=== PATIENT | male | born 1995 | race Caucasian/White ===

== ENCOUNTER 2021-05-21 13:09 | Outpatient (CLI) | payer OTHER, SELFPAY ==
[2021-05-21 15:03] LABS: Liquefaction Semen Complete in 30 min. (<30 minutes); Semen Color Opaque (Grey-opaque); Semen Viscosity Not Increased (Not Increa.); Volume Semen 2.5 mL (1.5-5.0)
[2021-05-21 15:04] LABS: Semen Immotility 20 %; Semen Morphology Result to Follow; Semen Non-Progressive Motility 10 %; Semen Progressive Motility 70 % (>32); Semen Total Motility 80 (>40% (PM+NP)); Sperm Count 35.2 Mil/mL (60-150 million/mL)
[2021-05-28 19:46] LABS: Fructose, Semen 375 mg/dL (150-600)
== END 2021-05-21 13:10 | disposition home or self-care (01) ==
LOC: CHSLAB 13:12
PROVIDERS: PCP Nurse Practitioner Family; Visit Provider Obstetrics & Gynecology
DX: Z31.41 Encounter for fertility testing (principal)
CPT/HCPCS: 82757; 88160; 89320

== ENCOUNTER 2021-07-16 10:31 | Emergency (ER) | payer OTHER, SELFPAY ==
[2021-07-16 10:49] VITALS: BP 131/86; PULSE 64; RESP 16; TEMP 36.7; O2SAT 99
--- NOTE | 2021-07-16 11:02 | ED.SKABFB ---
HPI - Skin/Abscess/Foreign Bdy General Chief complaint: Skin/Abscess/Foreign Body Stated complaint: RASH Time Seen by Provider: 07/16/21 11:03 Source: patient Mode of arrival: ambulatory Limitations: no limitations History of Present Illness HPI narrative: Jone Hernandez is a 26 yo male with no PMH who comes to express care with a dry scaly rash of abdomen and L forearm, states is not pruritic; has been there since last Wed. He has tried moisturizing it and using an antifungal cream that tends to make it start to fade and then it returns the next day Related Data Home Medications Medication Instructions Recorded Confirmed omeprazole 20 mg PO DAILY 07/16/21 07/16/21 Allergies Allergy/AdvReac Type Severity Reaction Status Date / Time cefaclor Allergy Unknown Rash Verified 07/16/21 10:56 Review of Systems Review of Systems: CONSTITUTIONAL: Denies fever, chills, sweats. EYES: Denies visual changes, redness, discharge. ENT: Denies rhinorrhea, congestion, sore throat, otalgia. CARDIOVASCULAR: Denies chest pain, palpitations, edema. RESPIRATORY: Denies dyspnea, wheezing, cough GASTROINTESTINAL: Denies abdominal pain, nausea, vomiting, diarrhea. GENITOURINARY: Denies dysuria, hematuria, abnormal discharge SKIN: Denies itching. Red scaly rash on abdomen left wrist NEUROLOGIC: Denies numbness, or focal weakness. PSYCHIATRIC: Denies anxiety or depression. [facility]LY [facility], [facility] Past Medical History Medical History Anxiety [id number] condition Surgical History Surgical History No history of previous surgery Family History Family History Father Diabetes mellitus Hypertension Heart disease Mother Cancer Grandparent Cancer Alzheimer disease Social History Social History Social History: , no children, but actively trying. 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 There is no relevant family history pertinent to the presenting complaint. Exam Narrative: GENERAL: This is a well-nourished, well-developed patient, in mild distress. HEAD: normocephalic, atraumatic. EYES: Sclera clear/white. Vision is grossly intact. EARS: External ears normal, Hearing grossly intact. NOSE: External nose normal without nasal discharge, nares without redness, no rhinorrhea. THROAT: Mucous membranes moist, NECK: Neck supple, CARDIOVASCULAR: Regular rate and rhythm without murmurs, gallops, or rubs. RESPIRATORY: Clear to auscultation. Breath sounds equal bilaterally. No wheezes, rales, or rhonchi. GASTROINTESTINAL: Abdomen soft, SKIN: warm, intact with rash, red dry flaky on abdomen and left forearm NEURO: awake, alert, and oriented to person, place and time. There were no obvious focal neurologic abnormalities. Steady gait EXTREMITIES: Normal range of motion. BACK: Nontender without deformity Course Course Emergency Course: Patient has history of eczema on his elbows and has a current rash is not pruritic but very flaky and Prescribed hydrocortisone 2%, given directions on how to use the cream in length of treatment, and to moisturize skin regularly Vital Signs Vital signs: Vital Signs Temperature 98.1 F 07/16/21 10:49 Pulse Rate 64 07/16/21 10:49 Respiratory Rate 16 07/16/21 10
== END 2021-07-16 11:24 | disposition home or self-care (01) ==
PROVIDERS: Emergency Provider Nurse Practitioner; PCP Nurse Practitioner Family
DX: L30.8 Other specified dermatitis (principal); F17.210 Nicotine dependence, cigarettes, uncomplicated
CPT/HCPCS: 99213; G0463

== ENCOUNTER 2022-03-03 15:18 | Emergency (ER) | payer OTHER, SELFPAY ==
--- NOTE | 2022-03-03 15:24 | ED.SKABFB ---
HPI - Skin/Abscess/Foreign Bdy General Chief complaint: Skin/Abscess/Foreign Body Stated complaint: wasp sting & eczema Time Seen by Provider: 03/03/22 15:27 Source: patient Mode of arrival: ambulatory Limitations: no limitations History of Present Illness HPI narrative: 26-year-old male presented for complaints of left arm redness and swelling after wasp sting last evening around 1800. He took Benadryl last night and this morning. States the redness is spreading the arm from the wrist. Denies numbness, tingling, weakness of the hand, denies lip, tongue, or throat swelling, shortness of breath or wheezing. Endorses history of allergic reaction to bee sting approximately 1 year ago and is requesting an EpiPen. Additionally, he endorses scattered patches of dry skin over body surface, he states he was told he has eczema and would like reassurance. Denies worsening condition. MD complaint: rash Related Data Home Medications Medication Instructions Recorded Confirmed omeprazole 20 mg tablet,delayed 20 mg PO DAILY 07/16/21 03/03/22 release Allergies Allergy/AdvReac Type Severity Reaction Status Date / Time cefaclor Allergy Unknown Rash Verified 03/03/22 15:28 Review of Systems Review of Systems: CONSTITUTIONAL: Denies body aches, fever, chills, or sweats. EYES: Denies visual changes, redness, or discharge. ENT: Denies rhinorrhea, congestion, sore throat CARDIOVASCULAR: Denies chest pain, palpitations, or edema. RESPIRATORY: Denies dyspnea. GASTROINTESTINAL: Denies abdominal pain, nausea, vomiting, or diarrhea. SKIN: reports redness/swelling, itching left forearm MUSCULOSKELETAL: Denies back pain, joint pain, or myalgia. NEUROLOGIC: Denies headache, numbness, tingling, or weakness. [facility] Past Medical History Medical History Anxiety [id number] condition Surgical History Surgical History No history of previous surgery Family History Family History Father Diabetes mellitus Hypertension Heart disease Mother Cancer Grandparent Cancer Alzheimer disease Social History Social History Social History: , no children, but actively trying. 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 Please see nursing chart for further information. There is no relevant family history pertinent to the presenting complaint Exam Narrative: GENERAL: Well-appearing EYES: conjunctivae clear, and EOMI. ENT: Mucous membranes moist. Oropharynx without edema, erythema or lesions. CHEST: Clear to auscultation. No respiratory distress. HEART: Regular rate and rhythm. SKIN: Warm, dry. scattered small approx 1-2cm diameter patches of dry scaly skin to abdomen and bilateral arm c/w eczema; Left wrist and dorsal surface of hand with moderate swelling, erythema to palmar surface of wrist to mid forearm, site of insect sting over distal ulna without stinger present; radial pulse palpable, sensation and motor intact, cap refill <3 seconds. NEURO: Alert and oriented x3. PSYCH: Normal mood and affect Course Course Emergency Course: Patient is aware of diagnosis, understands and agrees to treatment plan. Anticipatory guidance given. Patient agrees to f
[2022-03-03 15:29] VITALS: BP 140/97; PULSE 92; RESP 16; TEMP 37.3; O2SAT 100
[2022-03-03] MEDS: methylPREDNISolone SOD SUCC 125 MG VIAL IM (15:41)
== END 2022-03-03 15:51 | disposition home or self-care (01) ==
PROVIDERS: Emergency Provider Nurse Practitioner Family; PCP Nurse Practitioner Family
DX: T63.481A Toxic effect of venom of other arthropod, accidental (unintentional), initial encounter (principal); L30.9 Dermatitis, unspecified; F17.200 Nicotine dependence, unspecified, uncomplicated
CPT/HCPCS: 96372; 99213; G0463; J2930

== ENCOUNTER 2022-04-05 08:42 | Emergency (ER) | payer OTHER, SELFPAY ==
[2022-04-05 08:47] VITALS: BP 153/95; PULSE 83; RESP 16; TEMP 37.2; O2SAT 99
--- NOTE | 2022-04-05 08:47 | ED.URI ---
HPI - URI/Sore Throat General Chief Complaint: Upper Respiratory Infection Stated Complaint: sore throat Time Seen by Provider: 04/05/22 08:47 Source: patient and RN notes reviewed Mode of arrival: ambulatory Limitations: no limitations History of Present Illness HPI Narrative: 27-year-old male presents to the [facility] with complaints of a sore throat since yesterday. Has used cough drops. Pain is worse when coughing and sometimes with swallowing. No chest pain or abdominal pain. Denies fevers. No upper respiratory symptoms. Reports that he is COVID vaccinated completely. Took a COVID test yesterday when his symptoms started and he reports negative MD elicited complaint: sore throat Related Data Home Medications Medication Instructions Recorded Confirmed omeprazole 20 mg tablet,delayed 20 mg PO DAILY 07/16/21 04/05/22 release Allergies Allergy/AdvReac Type Severity Reaction Status Date / Time cefaclor Allergy Unknown Rash Verified 04/05/22 08:48 Review of Systems Review of Systems: All systems reviewed & are unremarkable except as noted in HPI and below Constitutional: Constitutional: Reports no additional constitutional complaints, Denies chills and Denies fever(s) Eyes: Eyes: Reports no additional eye complaints ENT: Reports as per HPI and Reports sore throat Cardiovascular: Cardiovascular: Reports no additional cardiovascular complaints Respiratory: Respiratory: Reports no additional respiratory complaints Gastrointestinal: Gastrointestinal: Reports no additional gastrointestinal complaints Musculoskeletal: Musculoskeletal: Reports no additional musculoskeletal complaints Integumentary/Breasts: Skin/Breast: Reports system reviewed and no additional complaints, except as docu Neurologic: Reports system reviewed and no additional complaints, except as documented Psychiatric: Psychiatric: Reports no additional psychiatric complaints Allergic/Immunologic: Allergic/Immunologic: Reports no additional allergic/immunologic complaints [facility]LY [facility] Past Medical History Medical History Anxiety [id number] condition Surgical History Surgical History No history of previous surgery Family History Family History Father Diabetes mellitus Hypertension Heart disease Mother Cancer Grandparent Cancer Alzheimer disease Social History Social History Social History: , no children, but actively trying. 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 There is no relevant family history pertinent to the patient complaint. Exam Const: General: healthy appearing, no acute distress and alert Nutritional Appearance: well nourished Orientation/consciousness: patient oriented x3 Limitations: no limitations HENMT: Head: normal to inspection Ears: external ears normal, TM's normal bilaterally and EAC's normal General nose exam: Normal external nose present and Normal nares present Face and sinus: normal facial exam Mouth: Yes Normal oral and palatal mucosa present, Yes lip normal and Yes moist mucous membranes Throat: posterior oropharynx normal and uvula midline Eyes: General: appearance normal, both eyes and all related structures Pupils: Equal, round an
[2022-04-05 18:42] LABS: SARS-CoV-2 RNA PCR Negative
== END 2022-04-05 09:13 | disposition home or self-care (01) ==
PROVIDERS: Emergency Provider Nurse Practitioner; PCP Nurse Practitioner Family
DX: J06.9 Acute upper respiratory infection, unspecified (principal); Z20.822 Contact with and (suspected) exposure to COVID-19; F17.290 Nicotine dependence, other tobacco product, uncomplicated; Z86.16 Personal history of COVID-19
CPT/HCPCS: 87081; 87880; 99213; C9803; G0463; U0003; U0005

== ENCOUNTER 2022-04-28 00:09 | Day surgery (SDC) | payer OTHER, SELFPAY ==
[2022-04-14 14:41] VITALS: BMI 29.0
[2022-04-28 08:06] VITALS: BP 144/87; PULSE 75; RESP 18; TEMP 36.2; O2SAT 99
[2022-04-28] MEDS: LACTATED RINGERS 1,000 ML 150 ML IV CONT (08:16)
--- NOTE | 2022-04-28 08:30 | P.PNAN_ITS ---
Anes - Initial Pre Proc Eval Procedure: Operation Date: 04/28/22 09:15 Proposed Procedures p Esophagogastroduodenoscopy - Abel Ramirez MD Date/Time: 04/28/22 08:30 Surgeon: Abel Ramirez MD Pre Op Diagnosis: GERD Patient Data Age: 27 Gender: M Height: 1.85 m Weight: 102.5 kg Last Vital Signs Temp 36.2 C L 04/28/22 08:06 Pulse 75 04/28/22 08:06 Resp 18 04/28/22 08:06 BP 144/87 H 04/28/22 08:06 Pulse Ox 99 04/28/22 08:06 O2 Del Method Room Air 04/28/22 08:06 Allergies Allergy/AdvReac Type Severity Reaction Status Date / Time cefaclor Allergy Unknown Rash Verified 04/28/22 08:05 Home Medications Medication Instructions Recorded Confirmed Type omeprazole 20 mg tablet,delayed 40 mg PO DAILY 07/16/21 04/20/22 History release triamcinolone acetonide 0.1 % 1 applic topical BID #30 grams 04/20/22 04/20/22 Rx topical cream Patient hx anesthesia problems: none Family hx anesthesia problems: none Results Review: All pre-operative results and documents have been reviewed as part of the pre- operative evaluation. [facility] Past Medical History Medical History Anxiety Atopic dermatitis [id number] condition Surgical History Surgical History No history of previous surgery Family History Family History Father Diabetes mellitus Hypertension Heart disease Mother Cancer Grandparent Cancer Alzheimer disease Social History Social History Social History: , no children, but actively trying. 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 Gender identity (if verbalized by the patient): Male Sexual Orientation (if Verbalized by the Patient): Straight or Heterosexual Agree to blood products: Yes Anes - Eval Final PreProcedure Day of Procedure 04/28/22 08:30 Patient weight: overweight Heart: regular rate and rhythm Lungs: clear to auscultation Airway: Mallampati scale class II Neurological: alert and oriented Last oral intake: >/= 8 hours ASA classification: II Emergent: no Anesthesia type and monitoring: general GIVS and standard monitoring Results Review: All pre-operative results and documents have been reviewed as part of the pre-operative evaluation. Informed Consent: The patient's anesthetic plan and its attendant risks and benefits were discussed with the patient/family/POA. Questions were solicited and answers provided to the satisfaction of the patient/family/POA.
[2022-04-28 09:25] VITALS: BP 121/60; PULSE 71; RESP 18; O2SAT 99
[2022-04-28 09:35] VITALS: BP 128/72; PULSE 77; RESP 19; O2SAT 98
[2022-04-28 09:45] VITALS: BP 139/72; PULSE 91; RESP 18; O2SAT 99
== END 2022-04-28 09:58 | disposition home or self-care (01) ==
PROVIDERS: PCP Family Medicine; Visit Provider Internal Medicine Gastroenterology
PROC: 0DJ08ZZ Inspection of Upper Intestinal Tract, Via Natural or Artificial Opening Endoscopic (ICD-10-PCS; CPT 43235; principal; 2022-04-28 09:15)
DX: K21.9 Gastro-esophageal reflux disease without esophagitis (principal); K29.50 Unspecified chronic gastritis without bleeding; F41.9 Anxiety disorder, unspecified; Z86.16 Personal history of COVID-19; F17.210 Nicotine dependence, cigarettes, uncomplicated; F12.90 Cannabis use, unspecified, uncomplicated; R10.13 Epigastric pain; R09.89 Other specified symptoms and signs involving the circulatory and respiratory systems; Z80.0 Family history of malignant neoplasm of digestive organs
CPT/HCPCS: 43239; 88305; 88342; J2704; J7120

== ENCOUNTER 2022-12-30 08:50 | Emergency (ER) | payer OTHER, SELFPAY ==
[2022-12-30 09:08] VITALS: BP 142/95; PULSE 74; RESP 20; TEMP 36.3; O2SAT 98
--- NOTE | 2022-12-30 09:19 | ED.BACK ---
HPI - Back Pain/Injury General Chief Complaint: Back Pain/Injury Stated Complaint: BACK/RIB PAIN Time Seen by Provider: 12/30/22 09:20 Source: patient Mode of arrival: ambulatory Limitations: no limitations History of Present Illness HPI Narrative: 27-year-old male presented for complaint of right posterior rib pain radiating to the front for almost 2 weeks. Pain occurs only when twisting at the ribs or taking deep breaths. He states it started after playing 18 holes of golf and going to the driving range the same day. He is new to golf and is concerned he strained his back. He has taken occasional Tylenol and ibuprofen, and alternate ice and heat without significant relief. He denies associated shortness of breath, chest pain, palpitations, wheezing, nausea, vomiting, urinary complaints, fevers or chills. He presented today because pain was at its worst walking out of bed. Related Data Allergies Allergy/AdvReac Type Severity Reaction Status Date / Time cefaclor Allergy Unknown Rash Verified 12/30/22 09:14 Sulfa (Sulfonamide Allergy Rash Verified 12/30/22 09:14 Antibiotics) Review of Systems Review of Systems: CONSTITUTIONAL: Denies body aches, fever, chills EYES: Denies visual changes CARDIOVASCULAR: Denies chest pain, palpitations, or edema. RESPIRATORY: Denies cough or dyspnea. GASTROINTESTINAL: Denies abdominal pain, nausea, vomiting, or diarrhea. SKIN: Denies rash, itching, or wounds. MUSCULOSKELETAL: reports back/rib pain NEUROLOGIC: Denies headache, numbness, tingling, or weakness. All systems reviewed & are unremarkable except as noted in HPI and below PMFSH Past Medical History Medical History Anxiety Atopic dermatitis [id number] condition Surgical History Surgical History No history of previous surgery Family History Family History Father Diabetes mellitus Hypertension Heart disease Mother Cancer Grandparent Cancer Alzheimer disease Social History Social History Social History: , no children, but actively trying. 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 Please see nursing chart for further information. There is no relevant family history pertinent to the presenting complaint Exam Narrative: GENERAL: Well-appearing, well-nourished, and in no acute distress. HEAD: Normocephalic, atraumatic. EYES: conjunctivae clear NECK: Supple. full ROM CHEST: Speaks in full sentences. No respiratory distress. HEART: Regular rate and rhythm. Normal and equal peripheral pulses. MUSC: No Vertebral point tenderness. Right T7-8 area paraspinal tenderness, radiates to right anterior ribs; worse with turning and palpation; BLEs with normal strength and sensation, normal range of motion No ecchymosis, open wounds, or obvious deformity; alignment normal, pulse palpable and equal bilaterally, skin warm, dry, pink. Capillary refill less than 3 seconds. Gait steady. SKIN: Warm, dry, no rash or lesions NEURO: Alert and oriented x3. Course Course Emergency Course: Patient is aware of diagnosis, understands and agrees to t
== END 2022-12-30 09:38 | disposition home or self-care (01) ==
PROVIDERS: Emergency Provider Nurse Practitioner Family; PCP Nurse Practitioner Family
DX: M54.6 Pain in thoracic spine (principal); R07.89 Other chest pain; F17.210 Nicotine dependence, cigarettes, uncomplicated; Z86.16 Personal history of COVID-19
CPT/HCPCS: 99213; G0463

== ENCOUNTER 2023-04-09 16:12 | Emergency (ER) | payer OTHER, SELFPAY ==
--- NOTE | 2023-04-09 16:13 | ED.WOUNDLAC ---
HPI - Wound/Laceration General Chief Complaint: Wound/Laceration Stated Complaint: FINGER LACERATION Time Seen by Provider: 04/09/23 16:13 Source: patient Mode of arrival: ambulatory Limitations: no limitations History of Present Illness HPI narrative: Patient is a 28-year-old male who presents with laceration to left thumb after cutting it on cement mason [address] and streets blade while doing dishes. Patient has been able to stop bleeding but states any time he had set it starts bleeding again. Reports mild pain. Tetanus shot is up-to-date Related Data Home Medications Medication Instructions Recorded Confirmed No Home Medications 04/09/23 04/09/23 Allergies Allergy/AdvReac Type Severity Reaction Status Date / Time cefaclor Allergy Unknown Rash Verified 04/09/23 16:23 Sulfa (Sulfonamide Allergy Rash Verified 04/09/23 16:23 Antibiotics) Review of Systems Review of Systems: All systems reviewed & are unremarkable except as noted in HPI and below Constitutional: Constitutional: Denies body ache(s), Denies chills, Denies fatigue, Denies fever(s), Denies headache(s), Denies malaise and Denies weakness Eyes: Eyes: Denies blurry vision, Denies irritation and Denies loss of vision ENT: Denies otalgia, Denies headache(s), Denies nasal discharge, Denies sinus pain and Denies sore throat Cardiovascular: Cardiovascular: Denies chest pain, Denies irregular heart rhythm and Denies dyspnea Respiratory: Respiratory: Denies dyspnea Gastrointestinal: Gastrointestinal: Denies abdominal pain, Denies melena, Denies hematochezia, Denies diarrhea, Denies nausea and Denies vomiting Musculoskeletal: Musculoskeletal: Denies back pain, Denies myalgias and Denies arthralgias Integumentary/Breasts: Skin/Breast: Denies pruritus, Denies rash and Reports wounds Neurologic: Denies headache(s), Denies loss of vision and Denies weakness Psychiatric: Psychiatric: Reports no additional psychiatric complaints Endocrine: Endocrine: Denies fatigue PMFSH Past Medical History Medical History Anxiety Atopic dermatitis [id number] condition Surgical History Surgical History No history of previous surgery Family History Family History Father Diabetes mellitus Hypertension Heart disease Mother Cancer Grandparent Cancer Alzheimer disease Social History Social History Social History: , no children, but actively trying. 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 There is no relevant family history pertinent to the presenting complaint. Exam Const: General: cooperative, healthy appearing, comfortable, no acute distress and well nourished Nutritional Appearance: well nourished Orientation/consciousness: patient oriented x3 Limitations: no limitations HENMT: Head: normal to inspection, normocephalic and atraumatic Ears: hearing grossly normal bilaterally and external ears normal Face/Nose/Sinus: Normal external nose present, normal facial exam and face symmetric Face and sinus: normal facial exam and face symmetric Mouth: Yes lip normal Eyes: General: appearance normal, both eyes and all related structures Alignmen
[2023-04-09 16:20] VITALS: BP 147/79; PULSE 74; RESP 16; TEMP 36.9; O2SAT 98
== END 2023-04-09 16:32 | disposition home or self-care (01) ==
PROVIDERS: Emergency Provider Nurse Practitioner Family
DX: S61.012A Laceration without foreign body of left thumb without damage to nail, initial encounter (principal); W29.0XXA Contact with powered kitchen appliance, initial encounter; F17.210 Nicotine dependence, cigarettes, uncomplicated; F12.90 Cannabis use, unspecified, uncomplicated
CPT/HCPCS: 12001; 99212; G0463

== ENCOUNTER 2024-07-07 11:55 | Emergency (ER) | payer OTHER, SELFPAY ==
[2024-07-07 12:10] VITALS: BP 107/86; PULSE 79; RESP 16; TEMP 36.4; O2SAT 100
[2024-07-07 12:12] VITALS: BP 107/86; PULSE 79; RESP 16; TEMP 36.4; O2SAT 100
--- NOTE | 2024-07-07 12:14 | ED_ITS ---
HPI - Dental/Oral General Chief complaint: Dental/Oral Stated complaint: Tooth Pain Time Seen by Provider: 07/07/24 12:14 Source: patient, RN notes reviewed and old records reviewed Mode of arrival: ambulatory Limitations: no limitations History of Present Illness HPI Narrative: 29year old male presents to express care with complaints of one week duration of gum redness and some swelling around #15 tooth. Patient reports that it felt like a canker sore or something on his gum by the tooth. Patient reports that he has had a root canal on that tooth in the past and is suppose to have it done again at an transport technician because he was told it was not done right the first time. He stated that he went for his appointment and was then told he had to had 2,500 dollars up front so he has had to reschedule. MD Complaint: tooth pain Location: Tooth # (#15) Onset (ago): week(s) (1) Severity: mild Treatment prior to arrival: none Related Data Home Medications Medication Instructions Recorded Confirmed omeprazole magnesium 10 mg oral 10 mg PO DAILY 07/07/24 07/07/24 suspension,delayed release (Prilosec) Allergies Allergy/AdvReac Type Severity Reaction Status Date / Time cefaclor Allergy Unknown Rash Verified 07/07/24 12:11 Sulfa (Sulfonamide Allergy Rash Verified 07/07/24 12:11 Antibiotics) Review of Systems Review of Systems: CONSTITUTIONAL: Denies fever, chills, or sweats. ENT: Denies rhinorrhea, congestion, sore throat, or otalgia. Reports redness and swelling of gum around #15 tooth without drainage, no facial swelling or fevers. CARDIOVASCULAR: Denies chest pain, palpitations, or edema. RESPIRATORY: Denies cough or dyspnea. SKIN: Denies rash or itching. MUSCULOSKELETAL: Denies myalgia. NEUROLOGIC: Denies headache All systems reviewed & are unremarkable except as noted in HPI and below PMFSH Past Medical History Medical History Anxiety Atopic dermatitis GERD (gastroesophageal reflux disease) [id number] condition Surgical History Surgical History History of placement of ear tubes as child [place] teeth extracted upper Family History Family History Father Diabetes mellitus Hypertension Heart disease Mother Cancer Grandparent Cancer Alzheimer disease Social History Social History Social History: , no children, but actively trying. 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 There is no relevant family history pertinent to the presenting complaint Exam Narrative: GENERAL: Well-appearing, well-nourished, and in no acute distress. HEAD: Normocephalic, atraumatic. EYES: PERRLA and EOMI. ENT: Nares clear, no rhinorrhea or epistaxis. Mucous membranes moist. Redness and swelling to gum area with some tenderness to area above #15 tooth, no trismus or Cristian angina, no noted caries to tooth. NECK: Supple. no lymphadenopathy CHEST: Clear to auscultation. No respiratory distress.SAO2 100% on room air HEART: Regular rate and rhythm. No murmur heard. Normal peripheral pulses. SKIN: Warm, dry, no rash. NEURO: No focal deficits. Alert and oriented x3. Course Course Emergency Course: Patient is aware of diagnosis, understands and agrees to treatment plan. Anticipatory guidance given. Patient agrees to follow-up as directed and is aware of reasons to seek care at the emergency department. Portions of this record may have been created with voice recognition software Level of Care: Express Care Visit Vital Signs Vital signs: Vital Signs Temperature 36.4 C 07/07/24 12:10 Pulse Rate 79 07/07/24 12:10 Respiratory Rate 16 07/07/24 12:10 Blood Pressure 107/86 07/07/24 12:10 Pulse Oximetry 100 07/07/24 12:10 Temperature 36.4 C 07/07/24 12:12 Pulse Rate 79 07/07/24 12:12 Respiratory Rate 16 07/07/24 12:12 Blood Pressure 107/86 07/07/24 12:12 Pulse Oximetry 100 07/07/24 12:12 Reviewed MDM - Dental/Oral MDM Narrative Medical decision making narrative: Patients pain and complaint coupled with physical findings are consistent with dentalgia. There are no focal signs of space occupying lesions that are compromising to the airway; no dysphagia, odynophagia, dysphonia, or dyspnea. No uvular deviation or soft palate edema. Patient is non-toxic appearing. The floor of the mouth is soft with no signs of Cristian's Angina; no induration below mandible, no neck pain.? Patient is without trismus or drooling and able to swallow secretions.? Patient is felt appropriate for discharge home with dental follow up. Differential Diagnosis Differential diagnosis: Likely gingival abscess, dental abscess and other (redness and swelling of gum) Medical Records Attestation: I reviewed the patient's medical records. Critical Care Time Critical Care Time Critical Care Time: No Discharge Plan Discharge Clinical Impression: Dental abscess Patient Disposition: Home, Self-Care Condition: Stable Instructions: Antibiotic Form, Dental Abscess (ED) Additional Instructions: Avoid temperature extremes May apply heat or ice to the face Gentle brushing and flossing Antibiotic as directed Tylenol for lesser pain Use ibuprofen regularly Follow-up with the dentist as soon as possible--see the list provided If your symptoms persist, change or worsen significantly before you can contact your personal physician then please, without delay, go to the emergency department for further evaluation. Follow-up with PCP in 7-10 days or sooner if needed Follow up with PCP soon in regards to your blood pressure which is elevated above threshold for referral. Blood pressure above 120/80 may indicate pre- hypertension. Monitor for any fevers Prescriptions: New chlorhexidine gluconate [Peridex] 0.12 % mouthwash 15 ml buccal BID Qty: 473 0RF clindamycin HCl 300 mg capsule 300 mg PO BID Qty: 20 0RF Rx Instructions: take with food recommend taking probiotic while taking this medication No Action Prilosec 10 mg Susp,Delayed Release For Recon 10 mg PO DAILY Follow-up/Referrals: PHYSICIAN,FOOTWEAR SALES LEADER [Primary Care Provider] - Stand Alone Forms: Work/School Release IP Time of Disposition: 12:24 Quality Ana Paula Coma Scale Eyes: Open Verbal: Oriented and Alert Motor: Follows Commands Ana Paula Coma Total Score: 15
== END 2024-07-07 12:29 | disposition home or self-care (01) ==
PROVIDERS: Emergency Provider Registered Nurse
DX: K04.7 Periapical abscess without sinus (principal); F17.210 Nicotine dependence, cigarettes, uncomplicated; F12.90 Cannabis use, unspecified, uncomplicated; K21.9 Gastro-esophageal reflux disease without esophagitis
CPT/HCPCS: 99213; G0463

== ENCOUNTER 2024-08-18 08:34 | Emergency (ER) | payer OTHER, SELFPAY ==
[2024-08-18 08:48] VITALS: BP 135/82; PULSE 79; RESP 16; TEMP 36.7; O2SAT 98
[2024-08-18 09:08] LABS: EDSTREPNEGPOS1 Negative (Negative)
--- NOTE | 2024-08-18 09:15 | ED.URI ---
HPI - URI/Sore Throat General Chief Complaint: Upper Respiratory Infection Stated Complaint: Stre[place] Symptoms Time Seen by Provider: 08/18/24 09:15 Source: patient, RN notes reviewed and old records reviewed Mode of arrival: ambulatory Limitations: no limitations History of Present Illness HPI Narrative: 29 year old male who presents to [facility] care with complaints of fevers, chills, sore throat, body aches with temperature 101F max which started on Wednesday evening 3 days ago. Patient reports that he has no nausea or vomiting, or diarrhea, or any acute cough He reports that he has been taking Tylenol for his symptoms. MD elicited complaint: fever, sore throat, nasal congestion and other (body aches) Onset (ago): day(s) (3) Severity: moderate Description of mucous: clear Able to tolerate fluids by mouth: Yes Treatments prior to arrival: acetaminophen Related Data Home Medications ?Medication ?Instructions ?Recorded ?Confirmed ?Last Taken ?Type omeprazole magnesium 10 mg oral 10 mg PO DAILY 07/07/24 07/07/24 Unknown History suspension,delayed release (Prilosec) Allergies Allergy/AdvReac Type Severity Reaction Status Date / Time cefaclor Allergy Unknown Rash Verified 07/07/24 12:11 Sulfa (Sulfonamide Allergy Rash Verified 07/07/24 12:11 Antibiotics) Review of Systems Review of Systems: CONSTITUTIONAL:Reports malaise, chills, sweats, or fever. EYES: Denies visual changes, redness, or discharge. ENT: Reports rhinorrhea, congestion, no sinus pain, no otalgia and some sore throat. CARDIOVASCULAR: Denies chest pain, palpitations, or edema. RESPIRATORY: Reports cough.? Denies dyspnea. GASTROINTESTINAL: Denies abdominal pain, nausea, vomiting, diarrhea SKIN: Denies rash or itching. MUSCULOSKELETAL:REports myalgia. NEUROLOGIC: Denies headache. All systems reviewed & are unremarkable except as noted in HPI and below PMFSH Past Medical History Medical History Atopic dermatitis GERD (gastroesophageal reflux disease) [id number] condition Anxiety Surgical History Surgical History [place] teeth extracted upper History of placement of ear tubes as child Family History Family History Father Diabetes mellitus Hypertension Heart disease Mother Cancer Grandparent Cancer Alzheimer disease Social History Social History Social History: , no children, but actively trying. 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 There is no relevant family history pertinent to the presenting complaint Exam Narrative: GENERAL: Illl-appearing, well-nourished, and in no acute distress. HEAD: Normocephalic EYES: PERRLA, conjunctivae clear ENT: Nares clear, turbinates edematous and erythematous, clear discharge. Mucous membranes moist. TM pearly mobley with dull light reflex bilaterally; no tragal tenderness. Oropharynx erythematous without lesions. Tonsils not enlarged and without exudate, no drooling, no hoarseness, no trismus, uvula midline.post nasal drainage noted NECK: Supple. No lymphadenopathy CHEST: Clear to auscultation, breath sounds equal. No wheezing, rhonchi, rales, or stridor. No respiratory distress, speaks in full sentences.some dry cough.SAO2 98% on room air HEART: Regular rate and rhythm. No murmur heard. SKIN: Warm, dry, no rash. NEURO: Alert and oriented x3. PSYCH: Normal mood and affect Course Course Emergency Course: Patient is aware of diagnosis, understands and agrees to treatment plan.? Anticipatory guidance given.? Patient agrees to follow-up as directed and is aware of reasons to seek care at the emergency department. Portions of this record may have been created with voice recognition software Level of Care: Express Care Visit Vital Signs Vital signs: Vital Signs Oxygen Delivery Room Air 08/18/24 08:40 Temperature 36.7 C 08/18/24 08:48 Pulse Rate 79 08/18/24 08:48 Respiratory Rate 16 08/18/24 08:48 Blood Pressure 135/82 08/18/24 08:48 Pulse Oximetry 98 08/18/24 08:48 Oxygen Delivery Room Air 08/18/24 08:40 Reviewed MDM - URI/Sore Throat MDM Narrative Medical decision making narrative: Differential diagnosis considered: Robles virus, strep pharyngitis, allergic rhinitis, upper respiratory tract infection, sinusitis, rhinosinusitis, nasopharyngitis. viral pharyngitis, otitis media, otitis externa, pneumonia, bronchitis, viral cough syndrome, viral syndrome, and influenza.? Exam findings show no acute concerns or changes; patient is non-toxic appearing and is in no distress.? Patient is appropriate for outpatient treatment and follow-up. Differential Diagnosis Differential diagnosis: Likely upper respiratory infection, sinusitis, viral infection, influenza, pharyngitis and other (strep pharyngitis, COVID) Lab Data Attestation: I reviewed the patient's lab results. Lab results narrative: strep screen negative, culture sent, Influenza A positive, Influenza B negative, COVID antigen negative Labs: Lab Results 08/18/24 08/18/24 Range/Units 08:43 09:23 POC Influenza A Ag Positive (Negative) POC Influenza B Ag Negative (Negative) POC SARS CoV-2 Ag Negative (Negative) POC Grp A Strep Screen Negative (Negative) reviewed Critical Care Time Critical Care Time Critical Care Time: No Discharge Plan Discharge Clinical Impression: Influenza A Patient Disposition: Home, Self-Care Condition: Stable Instructions: Antibiotic Form, Influenza (ED) Additional Instructions: Increase fluids especially juices and water [id number] cough and cold medicine of your choice for your symptoms Zyrtec Claritin or Rani daily may take Benadryl at bedtime Tylenol or ibuprofen for any fever pain heat to the face 20-30 minutes 4-6 times a day for pain Salt water gargles, throat lozenges or throat sprays as desired must be fever free for 24 hours without use of Tylenol or ibuprofen before you can be around others safely, do recommend you mask for the 1st 5 days when you are around others specially the elderly and chills Your strep test today was negative. A throat culture will be sent to the laboratory for further testing. IF the test is positive, you will receive a phone call within 48 hours and an appropriate antibiotic will be initiated at that time. Patient Language: Telugu Prescriptions: No Action Prilosec 10 mg Susp,Delayed Release For Recon 10 mg PO DAILY chlorhexidine gluconate [Peridex] 0.12 % mouthwash 15 ml buccal BID Qty: 473 0RF clindamycin HCl 300 mg capsule 300 mg PO BID Qty: 20 0RF Rx Instructions: take with food recommend taking probiotic while taking this medication Follow-up/Referrals: PHYSICIAN,ONLINE ACTIVIST [Primary Care Provider] - Stand Alone Forms: Work/School Release IP Time of Disposition: 09:31 Quality Howard Coma Scale Eyes: Open Verbal: Oriented and Alert Motor: Follows Commands Howard Coma Total Score: 15
[2024-08-18 09:26] LABS: EDCOVIDSCREEN Negative (Negative); EDINFLUASCREEN Positive (Negative); EDINFLUBSCREEN Negative (Negative)
== END 2024-08-18 09:36 | disposition home or self-care (01) ==
PROVIDERS: Emergency Provider Registered Nurse
DX: J10.1 Influenza due to other identified influenza virus with other respiratory manifestations (principal); Z20.822 Contact with and (suspected) exposure to COVID-19
CPT/HCPCS: 87081; 87426; 87804; 87880; 99213; G0463

== ENCOUNTER 2025-04-04 13:24 | Emergency (ER) | payer OTHER, SELFPAY ==
--- NOTE | 2025-04-04 13:29 | ED_ITS ---
HPI - General Adult General Chief complaint: Skin/Abscess/Foreign Body Stated complaint: skin irritation Source: patient Mode of arrival: ambulatory Limitations: no limitations History of Present Illness HPI narrative: Pt is a 30 y/o male presenting with c/o rash to yenifer. axillae. Sx began on Wednesday shortly after he switched from a stick deodorant to a spray deodorant which did not control his perspiration. No other new skin products. 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 No additional complaints. Related Data Allergies Allergy/AdvReac Type Severity Reaction Status Date / Time cefaclor Allergy Unknown Rash Verified 04/04/25 13:49 Sulfa (Sulfonamide Allergy Rash Verified 04/04/25 13:49 Antibiotics) Review of Systems Review of Systems: CONSTITUTIONAL: Denies body aches, fever, chills, or sweats. EYES: Denies visual changes, redness, or discharge. ENT: Denies rhinorrhea, congestion, sore throat, or otalgia. CARDIOVASCULAR: Denies chest pain, palpitations, or edema. RESPIRATORY: Denies cough or dyspnea. GASTROINTESTINAL: Denies abdominal pain, nausea, vomiting, or diarrhea. GENITOURINARY: Denies dysuria or hematuria. SKIN: Reports rash MUSCULOSKELETAL: Denies back pain, joint pain, or myalgia. NEUROLOGIC: Denies headache, numbness, tingling, or weakness. PSYCH: Denies depression or anxiety. All systems reviewed & are unremarkable except as noted in HPI and below PMFSH Past Medical History Medical History Atopic dermatitis GERD (gastroesophageal reflux disease) [id number] condition Anxiety Surgical History Surgical History [place] teeth extracted upper History of placement of ear tubes as child Family History Family History Father Diabetes mellitus Hypertension Heart disease Mother Cancer Grandparent Cancer Alzheimer disease Social History Social History Social History: , no children, but actively trying. 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 HEAD: Normocephalic, atraumatic. EYES: EOMI. No redness or drainage. Conjunctivae normal. NECK: Normal AROM. Supple. CHEST: No respiratory distress. HEART: Regular rate SKIN: Warm, dry. Erythematous/hyperpigmented scaly patches noted to yenifer. axillae NO drainage. no satellite lesions. NO evidence of secondary bacterial skin infection. Capillary refill normal. Normal skin turgor. NEURO: No focal deficits. Alert and oriented x3. Gait steady. PSYCH: Normal affect. No signs of depression or anxiety. Course Course Emergency Course: tinea vs contact/allergic dermatitis vs interigo vs erythrasma sx began after heavy perspiration so unlikely to be dermatitis 2/2 to new deodorant---however, will hold off on topical product at this time. Will try oral antifungal since no response to topical. If no improvement with fluconazole and , would rec treating with topical clinda for erythrasma. Encouraged skin car e measures to reduce moisture and friction in the involved areas. Discussed elevated blood pressure readings with patient and advised daily BP monitoring and f/u with PCP if persisting. Level of Care: Express Care Visit Vital Signs Vital signs: Vital Signs Temperature 98 F 04/04/25 13:41 Pulse Rate 85 04/04/25 13:41 Respiratory Rate 16 04/04/25 13:41 Blood Pressure 149/88 H 04/04/25 13:41 Pulse Oximetry 100 04/04/25 13:41 Temperature 98 F 04/04/25 13:41 Pulse Rate 85 04/04/25 13:41 Respiratory Rate 16 04/04/25 13:41 Blood Pressure 149/88 H 04/04/25 13:41 Pulse Oximetry 100 04/04/25 13:41 Medical Decision Making Vital Signs Vital Signs: Vital Signs Temperature 98 F 04/04/25 13:41 Pulse Rate 85 04/04/25 13:41 Respiratory Rate 16 04/04/25 13:41 Blood Pressure 149/88 H 04/04/25 13:41 Pulse Oximetry 100 04/04/25 13:41 Temperature 98 F 04/04/25 13:41 Pulse Rate 85 04/04/25 13:41 Respiratory Rate 16 04/04/25 13:41 Blood Pressure 149/88 H 04/04/25 13:41 Pulse Oximetry 100 04/04/25 13:41 Discharge Plan Discharge Clinical Impression: Rash, Elevated blood pressure reading without diagnosis of hypertension Patient Disposition: Home Condition: Stable Instructions: Tinea Corporis (ED) Additional Instructions: Go straight to ER should your symptoms become worse or should any new symptoms develop Patient Language: Indonesian Prescriptions: New fluconazole 150 mg tablet 150 mg PO WEEKLY Qty: 4 0RF Follow-up/Referrals: Dalia Espinosa NP [Primary Care Provider] - 04/04/25 Time of Disposition: 14:28
[2025-04-04 13:41] VITALS: BP 149/88; PULSE 85; RESP 16; TEMP 36.6; O2SAT 100
== END 2025-04-04 14:32 | disposition home or self-care (01) ==
PROVIDERS: Emergency Provider Registered Nurse; PCP Nurse Practitioner Family
DX: R21 Rash and other nonspecific skin eruption (principal); R03.0 Elevated blood-pressure reading, without diagnosis of hypertension; F17.210 Nicotine dependence, cigarettes, uncomplicated; F12.90 Cannabis use, unspecified, uncomplicated; K21.9 Gastro-esophageal reflux disease without esophagitis; Z86.16 Personal history of COVID-19
CPT/HCPCS: 99213; G0463

== ENCOUNTER 2025-05-27 09:10 | Emergency (ER) | payer OTHER, SELFPAY ==
[2025-05-27 09:23] VITALS: BP 135/98; PULSE 88; RESP 16; TEMP 37.1; O2SAT 99
--- NOTE | 2025-05-27 09:33 | ED.SKABFB ---
HPI - Skin/Abscess/Foreign Bdy General Chief complaint: Skin/Abscess/Foreign Body Stated complaint: BEE STING Time Seen by Provider: 05/27/25 09:34 Source: patient Mode of arrival: ambulatory Limitations: no limitations History of Present Illness HPI narrative: 30-year-old male presented for complaint of right hand swelling following insect sting yesterday. He states he was stung by a ground hornet. He took a Benadryl after the incident. Pt feels that the hand is more swollen today. Denies lip, tongue, or throat swelling, shortness of breath or wheezing. Related Data Allergies Allergy/AdvReac Type Severity Reaction Status Date / Time bee venom protein (honey bee) Allergy Mild Swelling Verified 05/27/25 09:24 cefaclor Allergy Unknown Rash Verified 05/27/25 09:23 Sulfa (Sulfonamide Allergy Rash Verified 05/27/25 09:23 Antibiotics) Review of Systems Review of Systems: CONSTITUTIONAL: Denies body aches, fever, chills, or sweats. EYES: Denies visual changes, redness, or discharge. ENT: Denies rhinorrhea, congestion CARDIOVASCULAR: Denies chest pain, palpitations, or edema. RESPIRATORY: Denies cough or dyspnea. GASTROINTESTINAL: Denies abdominal pain, nausea, vomiting, or diarrhea. SKIN: reports right hand swelling NEUROLOGIC: Denies headache, numbness, tingling, or weakness. [facility] Past Medical History Medical History Atopic dermatitis GERD (gastroesophageal reflux disease) [id number] condition Anxiety Surgical History Surgical History [place] teeth extracted upper History of placement of ear tubes as child Family History Family History Father Diabetes mellitus Hypertension Heart disease Mother Cancer Grandparent Cancer Alzheimer disease Social History Social History Social History: , no children, but actively trying. 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 Please see nursing chart for further information. There is no relevant family history pertinent to the presenting complaint Exam Narrative: GENERAL: Well-appearing HEAD: Normocephalic, atraumatic. EYES: conjunctivae clear, and EOMI. ENT: Mucous membranes moist. Oropharynx without edema, erythema or lesions. NECK: Supple. No lymphadenopathy CHEST: Clear to auscultation. HEART: Regular rate and rhythm. SKIN: Right hand moderate swelling extending to the distal forearm. CMS intact. No bruising or erythema. NEURO: Alert and oriented x3. Course Course Emergency Course: Patient is aware of diagnosis, understands and agrees to treatment plan. Anticipatory guidance given. Patient agrees to follow-up as directed and is aware of reasons to seek care at the emergency department. Portions of this record may have been created with voice recognition software Level of Care: Express Care Visit Vital Signs Vital signs: Vital Signs Temperature 98.8 F 05/27/25 09:23 Pulse Rate 88 05/27/25 09:23 Respiratory Rate 16 05/27/25 09:23 Blood Pressure 135/98 H 05/27/25 09:23 Pulse Oximetry 99 05/27/25 09:23 Temperature 98.8 F 05/27/25 09:23 Pulse Rate 88 05/27/25 09:23 Respiratory Rate 16 05/27/25 09:23 Blood Pressure 135/98 H 05/27/25 09:23 Pulse Oximetry 99 05/27/25 09:23 Reviewed MDM - Skin/Abscess/Foreign Bdy MDM Narrative Medical decision making narrative: Discussed physical exam findings. Reviewed RX. Advised supportive measures and signs/symptoms to go to the ER. Pt is appropriate for outpt treatment and f/u. Differential Diagnosis Differential diagnosis: Likely abscess of skin or subcutaneous tissue, viral exanthem, dermatophytosis, urticaria, herpes zoster, cellulitis, eczema, insect bites, impetigo and contact dermatitis Discharge Plan Discharge Clinical Impression: Accidental insect sting Patient Disposition: Home Condition: Stable Instructions: Insect Bite or Sting (ED) Additional Instructions: Take steroids as directed. Benadryl every 8 hours as needed for itching, or you can take Zyrtec according to package directions Cool compresses to the sites of itching, avoid hot water. Avoid scratching to reduce the risk of infection Elevate the hand to reduce swelling Follow up with your primary care provider as needed in 1 week Go to the ER for worsening symptoms or concerns (lip, tongue, throat swelling/itching, trouble breathing etc) Patient Language: French Prescriptions: New methylprednisolone [Medrol (Saran)] 4 mg tablets,dose pack See Rx Instructions .ROUTE .COMPLEX Qty: 21 0RF Rx Instructions: orally per package directions No Action fluconazole 150 mg tablet 150 mg PO WEEKLY Qty: 4 0RF Follow-up/Referrals: Dalia Espinosa NP [Primary Care Provider, [facility]] Time of Disposition: 09:38
== END 2025-05-27 09:40 | disposition home or self-care (01) ==
PROVIDERS: Emergency Provider Nurse Practitioner Family; PCP Nurse Practitioner Family
DX: T63.451A Toxic effect of venom of hornets, accidental (unintentional), initial encounter (principal); K21.9 Gastro-esophageal reflux disease without esophagitis; F17.210 Nicotine dependence, cigarettes, uncomplicated; F12.90 Cannabis use, unspecified, uncomplicated
CPT/HCPCS: 99213; G0463

== ENCOUNTER 2025-05-31 14:46 | Emergency (ER) | payer OTHER, SELFPAY ==
[2025-05-31 15:03] VITALS: BP 132/76; PULSE 81; RESP 16; TEMP 37; O2SAT 98
--- NOTE | 2025-05-31 17:18 | ED_ITS ---
HPI - Skin/Abscess/Foreign Bdy General Chief complaint: Skin/Abscess/Foreign Body Stated complaint: Rash under arms Time Seen by Provider: 05/31/25 15:28 Source: patient, RN notes reviewed and old records reviewed Mode of arrival: ambulatory Limitations: no limitations History of Present Illness HPI narrative: 30-year-old male patient presents today with complaints of painful and pruritic rash to the bilateral axilla x1 week. Patient was seen here at [facility] for same complaint on 04/04/2025, diagnosed with intertrigo, and given a prescription for fluconazole to be taken weekly x4 weeks. Patient states his symptoms resolved with this regimen, then return 1 week ago. He has tried some topical clotrimazole without improvement. After the previous outbreak he did not follow up with his primary. He was seen here at [facility] a few days ago after being stung on the right hand by a bee and was placed on steroids to help with the swelling. States this has been helping but is requesting an EpiPen prescription. Related Data Allergies Allergy/AdvReac Type Severity Reaction Status Date / Time venom-wasp Allergy Severe Swelling Verified 05/31/25 15:03 bee venom protein (honey bee) Allergy Mild Swelling Verified 05/31/25 15:03 cefaclor Allergy Unknown Rash Verified 05/31/25 15:03 Sulfa (Sulfonamide Allergy Rash Verified 05/31/25 15:03 Antibiotics) PMFSH Past Medical History Medical History Atopic dermatitis GERD (gastroesophageal reflux disease) [id number] condition Anxiety Surgical History Surgical History [place] teeth extracted upper History of placement of ear tubes as child Family History Family History Father Diabetes mellitus Hypertension Heart disease Mother Cancer Grandparent Cancer Alzheimer disease Social History Social History Social History: , no children, but actively trying. 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 Please see nursing chart for further information. There is no relevant family history pertinent to the presenting complaint Exam Narrative: GENERAL: Well-appearing, well-nourished, and in no acute distress. HEAD: Normocephalic, atraumatic. EYES: EOMI. No redness or drainage. Conjunctivae normal. ENT: Mucous membranes pink and moist. NECK: Normal AROM. CHEST: No respiratory distress. EXTREMITIES: Normal range of motion. Mild edema to the dorsum of the right hand from previous bee sting. SKIN: Warm, dry.. Capillary refill normal. Normal skin turgor. Bilateral axillae have very moist, raised, white patches with mild maceration on a mildly erythematous base, right greater than left. NEURO: No focal deficits. Alert and oriented x3. Gait steady. PSYCH: Normal affect. No signs of depression or anxiety. Course Course Level of Care: Psychiatric Visit Vital Signs Vital signs: Vital Signs Temperature 98.6 F 05/31/25 15:03 Pulse Rate 81 05/31/25 15:03 Respiratory Rate 16 05/31/25 15:03 Blood Pressure 132/76 05/31/25 15:03 Pulse Oximetry 98 05/31/25 15:03 Oxygen Delivery Room Air 05/31/25 15:03 Temperature 98.6 F 05/31/25 15:03 Pulse Rate 81 05/31/25 15:03 Respiratory Rate 16 05/31/25 15:03 Blood Pressure 132/76 05/31/25 15:03 Pulse Oximetry 98 05/31/25 15:03 Oxygen Delivery Room Air 05/31/25 15:03 Reviewed MDM - Skin/Abscess/Foreign Bdy MDM Narrative Medical decision making narrative: 30-year-old male patient presents today with complaints of painful and pruritic rash to the bilateral axilla x1 week. Patient was seen here at [facility] for same complaint on 04/04/2025, diagnosed with intertrigo, and given a prescription for fluconazole to be taken weekly x4 weeks. Patient states his symptoms resolved with this regimen, then return 1 week ago. He has tried some topical clotrimazole without improvement. Also requesting an Epipen after being stung by a bee a few days ago. He was seen here at [facility] to be seen and is currently on steroids for his hand swelling. Upon exam, Bilateral axillae have very moist, raised, white patches with mild maceration on a mildly erythematous base, right greater than left. Right hand is mildly edematous. Prescription for additional fluconazole given for intertrigo. Urged to follow up with PCP. Also will prescribe Epipen. Discussed proper use. Vital signs stable. Patient agrees with plan. Anticipatory guidance given. Differential Diagnosis Differential diagnosis: Likely abscess of skin or subcutaneous tissue, viral exanthem, dermatophytosis, cellulitis, eczema, impetigo, contact dermatitis and other (intertrigo) Critical Care Time Critical Care Time Critical Care Time: No Discharge Plan Discharge Clinical Impression: Intertrigo Patient Disposition: Home Condition: Stable Additional Instructions: Please take the fluconazole as prescribed. You can wash your underarms with Head and Shoulders shampoo, then dry with a cool assistant hairstylist. Apply clotrimazole cream. Follow up with your PCP regarding recurrent rash. Use the Epipen as prescribed. Patient Language: Upper Sorbian Prescriptions: New fluconazole 150 mg tablet 150 mg PO WEEKLY 28 Days Qty: 4 0RF epinephrine [EpiPen 2-Saran] 0.3 mg/0.3 mL auto-injector 0.3 ml subcut Q5-15M PRN (Reason: allergic reaction) Qty: 2 0RF Rx Instructions: do not exceed 2 doses per episode Follow-up/Referrals: PHYSICIAN NOT ON STAFF,NONSTAFF [Primary Care Provider] Time of Disposition: 15:58
== END 2025-05-31 16:05 | disposition home or self-care (01) ==
PROVIDERS: Emergency Provider Nurse Practitioner
DX: L30.4 Erythema intertrigo (principal); F17.210 Nicotine dependence, cigarettes, uncomplicated; F12.90 Cannabis use, unspecified, uncomplicated; K21.9 Gastro-esophageal reflux disease without esophagitis
CPT/HCPCS: 99213; G0463